=== PATIENT | female | born 1970 | race Caucasian/White ===

== ENCOUNTER → 2016-08-16 | Outpatient (CLI) | payer BC ==
[2016-08-16 08:52] LABS: HEMOGLOBIN 12.4 gm/dl (12.3-15.3); RED BLOOD COUNT 4.37 M/UL (4.00-5.10)
[2016-08-16 09:10] LABS: BUN/CREATININE RATIO 25 (0-10)
== END ==
LOC: LAB 07:37
PROVIDERS: Physician Assistant
DX: I10 Essential (primary) hypertension (principal); E78.5 Hyperlipidemia, unspecified; E11.65 Type 2 diabetes mellitus with hyperglycemia; E03.9 Hypothyroidism, unspecified; D64.9 Anemia, unspecified
CPT/HCPCS: 36415; 80048; 80061; 80074; 80076; 83036; 84443; 85025

== ENCOUNTER → 2016-10-18 | Outpatient (CLI) | payer BC | LOC: US 12:18 | DX: E04.1 Nontoxic single thyroid nodule (principal); E04.2 Nontoxic multinodular goiter | CPT/HCPCS: 76536 ==

== ENCOUNTER → 2016-10-19 | Outpatient (CLI) | payer BC | LOC: ECHO 11:24 | DX: R07.9 Chest pain, unspecified (principal); R53.83 Other fatigue; I51.9 Heart disease, unspecified | CPT/HCPCS: ECHO; 93306 ==

== ENCOUNTER → 2020-06-14 | Outpatient (CLI) | payer BC ==
[~2020-06-14] MED LIST: ALEVE220 MG PO; DULOXETINE HCL60 MG PO; EUTHYROX150 MCG PO; FISH OIL 500 M1 EAC3 PO; FOLIC ACID1 MG PO; LAMOTRIGINE200 MG PO; LEVOXYL150 MCG PO; LIDOCAINE PATCH; LINZESS72 MCG PO; METFORMIN HCL750 MG PO; MULTIVITAMINS1 EAC1 PO; NAPROXEN500 MG PO; OSTEO BI-FLEX1 EAC1 PO; PEPCID20 MG PO; PREGABALIN25 MG PO; TRAMADOL HCL50 MG PO; TRESIBA100 UNIT/1 SQ; TRULICITY1.5 MG/0.5 SQ; VITAMIN B-12500 MCG PO; ZANAFLEX4 M1 PO; ZESTRIL10 MG PO; ZYRTEC10 MG PO
== END ==
LOC: EROP 10:26
DX: Z20.822 Contact with and (suspected) exposure to COVID-19 (principal)
CPT/HCPCS: U0002

== ENCOUNTER → 2020-09-15 | Outpatient (CLI) | payer BC | LOC: EROP 15:02 | DX: Z01.812 Encounter for preprocedural laboratory examination (principal); Z20.822 Contact with and (suspected) exposure to COVID-19 | CPT/HCPCS: U0003 ==

== ENCOUNTER → 2020-09-17 | Day surgery (SDC) | payer BC | END | disposition home or self-care (01) | LOC: OR 11:08 | DX: D3A.8 Other benign neuroendocrine tumors (principal); K29.60 Other gastritis without bleeding; K31.89 Other diseases of stomach and duodenum; K21.9 Gastro-esophageal reflux disease without esophagitis; K59.09 Other constipation; E03.9 Hypothyroidism, unspecified; E66.9 Obesity, unspecified; E11.9 Type 2 diabetes mellitus without complications; E78.5 Hyperlipidemia, unspecified; F31.9 Bipolar disorder, unspecified; M19.90 Unspecified osteoarthritis, unspecified site; Z87.19 Personal history of other diseases of the digestive system; Z20.822 Contact with and (suspected) exposure to COVID-19; Z88.5 Allergy status to narcotic agent; Z88.0 Allergy status to penicillin; Z88.8 Allergy status to other drugs, medicaments and biological substances; Z98.890 Other specified postprocedural states; Z90.710 Acquired absence of both cervix and uterus | CPT/HCPCS: 82962; J2704 ==

== ENCOUNTER → 2020-10-24 | Outpatient (CLI) | payer BC ==
[2020-10-24 07:52] LABS: HEMOGLOBIN 11.5 gm/dl (12.3-15.3); RED BLOOD COUNT 4.38 M/UL (4.00-5.10); WHITE BLOOD COUNT 8.1 K/UL (4.5-11.0)
[2020-10-24 08:24] LABS: BUN/CREATININE RATIO 17 (0-10)
== END ==
LOC: LAB 06:40
PROVIDERS: Physician Assistant
DX: E78.5 Hyperlipidemia, unspecified (principal); E11.65 Type 2 diabetes mellitus with hyperglycemia; E03.9 Hypothyroidism, unspecified; R53.83 Other fatigue
CPT/HCPCS: 36415; 80048; 80061; 80076; 82607; 83036; 84443; 85025

== ENCOUNTER → 2021-01-18 | Outpatient (CLI) | payer BC ==
[2021-01-18 10:49] LABS: BUN/CREATININE RATIO 14 (0-10)
[2021-01-19 10:14] LABS: CREATININE, URINE 131.2 mg/dL (Not Estab.)
[2021-01-19 17:11] LABS: THYROGLOBULIN ANTIBODY <1.0 IU/mL (0.0-0.9); THYROGLOBULIN BY IMA <0.1 ng/mL (1.5-38.5)
== END ==
LOC: LAB 07:33
PROVIDERS: Internal Medicine
DX: C73 Malignant neoplasm of thyroid gland (principal); E11.9 Type 2 diabetes mellitus without complications
CPT/HCPCS: 80048; 80061; 82043; 82570; 82607; 84443; 86800

== ENCOUNTER → 2021-03-11 | Outpatient (CLI) | payer BC | LOC: DTC 13:02 | DX: E11.65 Type 2 diabetes mellitus with hyperglycemia (principal); E11.43 Type 2 diabetes mellitus with diabetic autonomic (poly)neuropathy; K31.84 Gastroparesis; E78.5 Hyperlipidemia, unspecified; K58.9 Irritable bowel syndrome, unspecified; Z71.3 Dietary counseling and surveillance | CPT/HCPCS: G0108 ==

== ENCOUNTER → 2021-08-28 | Outpatient (CLI) | payer BC ==
[2021-08-28 07:40] LABS: HEMOGLOBIN 12.1 gm/dl (12.3-15.3); RED BLOOD COUNT 4.7 M/UL (4.00-5.10); WHITE BLOOD COUNT 5.3 K/UL (4.5-11.0)
[2021-08-28 08:11] LABS: BUN/CREATININE RATIO 19 (0-10)
== END ==
LOC: LAB 07:11
PROVIDERS: Internal Medicine
DX: E11.65 Type 2 diabetes mellitus with hyperglycemia (principal)
CPT/HCPCS: 80048; 80061; 80076; 83036; 84443; 85025